=== PATIENT | female | born 1955 | race Caucasian/White ===

== ENCOUNTER 2017-02-24 10:15 | Outpatient (CLI) | payer MEDICARE ==
[2017-02-24 11:24] LABS: #Basophils 0.1 thou/uL (0.0-0.2); #Eosinphils 0.4 thou/uL (0.0-0.7); #Lymphocytes 2.6 thou/uL (1.20-3.40); #Monocytes 0.7 thou/uL (0.11-0.59); #Neutrophils 4.2 thou/uL (1.40-6.50); %Basophils 1.6 % (0.0-1.0); %Eosinophils 4.8 % (0.0-10.0); %Lymphocytes 32.7 % (21.0-51.0); %Monocytes 8.2 % (0.0-10.0); %Neutrophils 52.6 % (42.0-75.0); Mean Corpuscular HGB CONC 34.8 g/dL (32.0-36.0); Mean Corpuscular Hemoglobin 30.7 pg (27.0-31.0); Mean Corpuscular Volume 88.3 fl (81.0-99.0); Mean Platelet Volume 7.1 fL (7.4-10.4); Platelet Count 232 thou/uL (130-400); RBC Distribution Width 13.1 % (11.5-14.5); Red Blood Cell (RBC) Count 4.87 mill/uL (4.20-5.40); White Blood Cell (WBC) Count 8.1 thou/uL (4.8-10.8)
[2017-02-24 11:32] LABS: ALT (SGPT) 57 U/L (8-55); AST (SGOT) 30 U/L (5-34); Albumin 4.5 g/dL (3.4-4.8); Alkaline Phosphatase 95 U/L (40-150); Anion Gap 16 mmol/L (10-20); BUN (Urea Nitrogen) 19 mg/dL (9.8-20.1); Bilirubin, Total 0.9 mg/dL (0.2-1.2); Calc. Creatinine Clearance 0 mL/min (70-130); Calcium 9.7 mg/dL (7.8-10.44); Carbon Dioxide 24 mmol/L (23-31); Cardiac Risk 4.9 (Less than 4.5); Chloride 105 mmol/L (98-107); Cholesterol 178 mg/dl (< 200 Desired); Estimated GFR-MDRD 62; Globulin 2.6 g/dL (2.4-3.5); Glucose 123 mg/dL (80-115); HDL Cholesterol 36 mg/dL (>60 Neg Risk); LDL Cholesterol, Calculated 106 mg/dL; Potassium 4.2 mmol/L (3.5-5.1); Protein, Total 7.1 g/dL (6.0-8.3); Sodium 141 mmol/L (136-145); Triglycerides 180 mg/dL (Less than 150)
[2017-02-24 18:05] LABS: Creatinine, Urine 127.42 mg/dL (47-110); Microalbumin/Creat Ratio 31.4 mg/g (Less than 30)
== END 2017-02-24 10:16 | disposition home or self-care (01) ==
LOC: HPCALD 10:15
PROVIDERS: ATTEND Family Medicine
DX: E11.9 Type 2 diabetes mellitus without complications (principal); I10 Essential (primary) hypertension
CPT/HCPCS: 36415; 80053; 80061; 82043; 84443; 85025

== ENCOUNTER 2017-04-07 09:10 | Outpatient (CLI) | payer MEDICARE ==
[2017-04-07 09:25] LABS: Hemoglobin 14.3 g/dL (12.0-16.0); Mean Corpuscular HGB CONC 34.9 g/dL (32.0-36.0); Mean Corpuscular Hemoglobin 30.7 pg (27.0-31.0); Mean Corpuscular Volume 87.8 fl (81.0-99.0); Mean Platelet Volume 7.2 fL (7.4-10.4); Platelet Count 206 thou/uL (130-400); RBC Distribution Width 12.5 % (11.5-14.5); Red Blood Cell (RBC) Count 4.65 mill/uL (4.20-5.40); White Blood Cell (WBC) Count 6.2 thou/uL (4.8-10.8)
[2017-04-07 09:43] LABS: ALT (SGPT) 54 U/L (8-55); AST (SGOT) 28 U/L (5-34); Albumin 4.2 g/dL (3.4-4.8); Alkaline Phosphatase 92 U/L (40-150); Anion Gap 12 mmol/L (10-20); BUN (Urea Nitrogen) 17 mg/dL (9.8-20.1); Bilirubin, Total 0.9 mg/dL (0.2-1.2); Calc. Creatinine Clearance 0 mL/min (70-130); Calcium 9.5 mg/dL (7.8-10.44); Carbon Dioxide 28 mmol/L (23-31); Chloride 105 mmol/L (98-107); Estimated GFR-MDRD 64; Globulin 2.7 g/dL (2.4-3.5); Glucose 136 mg/dL (80-115); Potassium 4.1 mmol/L (3.5-5.1); Protein, Total 6.9 g/dL (6.0-8.3); Sodium 141 mmol/L (136-145)
[2017-04-07 17:56] LABS: CRP (Inflammatory) Less than 0.50 mg/dL (= or < 0.5)
== END 2017-04-07 09:11 | disposition home or self-care (01) ==
LOC: BURLAB 09:10
PROVIDERS: ATTEND Internal Medicine Gastroenterology
DX: K51.20 Ulcerative (chronic) proctitis without complications (principal)
CPT/HCPCS: 36415; 80053; 85027; 86140

== ENCOUNTER 2017-04-15 10:01 | Outpatient (CLI) | payer MEDICARE ==
--- NOTE | 2017-04-15 21:13 | ULT ---
RIGHT UPPER QUADRANT ULTRASOUND 04/15/17 Ultrasonography of the right upper quadrant was performed for evaluation of abnormal liver function tests. The patient does not image extremely well by ultrasound, though useful inflammation was obtai ivan. The hepatic parenchyma is seen only moderately well, but the liver is unquestionably enlarged, measu ring 18.2 cm in oblique sagittal dimension. The parenchyma seems somewhat echogenic suggesting there may be fatty infiltration. There are no dilated intrahepatic ducts or obvious masses. Portal venous flow was measured and is traveling towards the liver as would be normal. The gallbladder contained no stones or wall thickening. Some images suggested the possibility of slu dge, however, the area is seen poorly enough that this could also be artifactual echoes. The pancrea s is only seen faintly, but the visible areas were unremarkable. The common bile duct was a normal 5 mm in caliber. The right kidney was 10.5 cm in length and appeared normal. IMPRESSION: 1. Hepatomegaly with possible fatty infiltration of the liver. 2. Equivocal sludge in the gallbladder versus artifactual echoes. No stones or wall thickening. POS: HOME
== END 2017-04-15 10:02 | disposition home or self-care (01) ==
LOC: BURULT 10:01
PROVIDERS: ATTEND Internal Medicine Gastroenterology
DX: K51.30 Ulcerative (chronic) rectosigmoiditis without complications (principal); R74.0 Nonspecific elevation of levels of transaminase and lactic acid dehydrogenase [LDH]; Z80.0 Family history of malignant neoplasm of digestive organs; R16.0 Hepatomegaly, not elsewhere classified; K82.8 Other specified diseases of gallbladder
CPT/HCPCS: 76705

== ENCOUNTER 2017-05-01 11:45 | Outpatient (CLI) | payer MEDICARE | END 2017-05-01 11:46 | disposition home or self-care (01) | LOC: BURLAB 11:45 | PROVIDERS: ATTEND Internal Medicine Gastroenterology | DX: Z01.812 Encounter for preprocedural laboratory examination (principal) | CPT/HCPCS: 36415; 82565 ==

== ENCOUNTER 2017-05-05 07:40 | Outpatient (CLI) | payer MEDICARE ==
--- NOTE | 2017-05-05 21:12 | CT ---
CT ABDOMEN WITH AND WITHOUT CONTRAST 05/05/17 Comparison is made with a prior CT dated 02/28/15. Scans were initially done without IV contrast. A portal venous phase scan was done after injection o f contrast followed by a slightly delayed image about three minutes later. Axial slices were acquire d, then coronal and sagittal reconstructions were done. The lung bases are clear. The liver is slightly generous in size but it is really no different than it was in 2015. It is slightly dense suggesting some degree of fatty infiltration. There were no sig ns of masses or areas of abnormal enhancement within the liver. The gallbladder does not have thick haynes or abnormal enhancement. No calculi were seen within it. The spleen is normal in size. The pineda creas was unremarkable in appearance. The kidneys showed no mass or hydronephrosis. The abdominal ao rta has some calcification in it but no aneurysm. The patient has a known right adrenal mass. On today's study, the size of the mass was measured at 2 .6 x 2.1 cm. This is virtually identical to the 2015 size of 2.7 x [address] numbers noncontras t were around 17 units. The portal venous phase gail to 55 units. A true 15 minute washout was not d one, though the CT density even three minutes after the portal venous phase image had already decre ased to 34 units. All of these findings make it more likely than not that this is a benign lesion, s uch as an adenoma, and the lack of growth overtime is also comforting. There is no sign of dilation of bowel or thickening of the colon or small bowel haynes in the areas v isible. The only section of question is whether there might be some marginal thickening of the haynes in the pyloric region of the distal stomach. As this is not fully distended, the finding is indefin ite. No free air or free fluid was seen. The bony structures showed no acute changes. Some degenerative changes were seen in the spine. The l owest scan shows some significant degenerative changes occurring at the top of the left SI joint. Th ere is certainly arthritic changes in the facet joints at multiple levels of the lumbar spine with s ome concentric bulging of some of the lower lumbar discs. IMPRESSION: 1. Mild prominence of hepatic size with no change since 2014. Probable mild fatty infiltration of the liver. No focal hepatic lesions. 2. 2.6 cm right adrenal mass. It has not grown in size since the 2015 scan. While a full adrena l washout study was not done, the findings listed above are typical of benign lesions. 3. Equivocal slight thickening of the wall of the pylorus, an equivocal finding given that it i s not well distended by the oral contrast given. POS: HOME
== END 2017-05-05 07:41 | disposition home or self-care (01) ==
LOC: BURCT 07:40
PROVIDERS: ATTEND Internal Medicine Gastroenterology
DX: R16.0 Hepatomegaly, not elsewhere classified (principal); E27.8 Other specified disorders of adrenal gland
CPT/HCPCS: 74170

== ENCOUNTER 2018-11-23 12:11 | Outpatient (CLI) | payer MEDICARE ==
--- NOTE | 2018-11-23 21:21 | RAD ---
THORACIC SPINE TWO VIEWS: 11/23/18 No obvious fracture or area of vertebral destruction was seen. Abnormalities of the upper thoracic ve rtebrae would not be seen as well on this plain film study and would need cross-sectional imaging. De generative changes are seen in the spine which are mild in most areas and more moderate in the lower thoracic spine. Epidural stimulator leads are noted in the lower thoracic region. IMPRESSION: Mild to moderate degenerative change. POS: HOME
--- NOTE | 2018-11-23 21:22 | RAD ---
RIGHT RIBS FOUR VIEWS: 11/23/18 No fracture or area of bony destruction was apparent. All ribs appeared intact. The adjacent right joel ng is clear. There are no effusions. Degenerative change is seen in the right AC joint. IMPRESSION: No significant finding. POS: HOME
== END 2018-11-23 12:12 | disposition home or self-care (01) ==
LOC: BURRAD 12:11
PROVIDERS: ATTEND Family Medicine
DX: M54.6 Pain in thoracic spine (principal)
CPT/HCPCS: 72070

== ENCOUNTER 2020-06-25 09:15 | Emergency (ER) | payer MEDICARE, OTHER ==
[2020-06-25 10:49] LABS: ALT (SGPT) 59 U/L (8-55); AST (SGOT) 36 U/L (5-34); Albumin 4.5 g/dL (3.4-4.8); Alkaline Phosphatase 64 U/L (40-110); Anion Gap 15 mmol/L (10-20); BUN (Urea Nitrogen) 26 mg/dL (9.8-20.1); Bilirubin, Total 0.9 mg/dL (0.2-1.2); Calc. Creatinine Clearance 0 mL/min (70-130); Calcium 9.8 mg/dL (7.8-10.44); Carbon Dioxide 25 mmol/L (23-31); Chloride 105 mmol/L (98-107); Estimated GFR-MDRD 50; Glucose 151 mg/dL (80-115); Potassium 3.9 mmol/L (3.5-5.1); Protein, Total 7.5 g/dL (6.0-8.3); Sodium 141 mmol/L (136-145)
[2020-06-25 11:02] LABS: Hemoglobin 10.1 g/dL (12.0-16.0); Mean Corpuscular HGB CONC 32.9 g/dL (32.0-36.0); Mean Corpuscular Hemoglobin 35.3 pg (27.0-31.0); Mean Platelet Volume 5.9 fL (7.4-10.4); Platelet Count 98 thou/uL (130-400); RBC Distribution Width 16.3 % (11.5-14.5); Red Blood Cell (RBC) Count 2.86 mill/uL (4.20-5.40); White Blood Cell (WBC) Count 12.2 thou/uL (4.8-10.8)
[2020-06-25 11:06] LABS: Band 8 % (5-11); Lymphocytes 28 % (21-51); MDiff Complete? YES; Neutrophil 42 % (42-75)
[2020-06-25 11:07] LABS: Anisocytosis SLIGHT = 6-15 cells (100X) (0-5/hpf); Basophilic Stippling SLIGHT = 1-2 cells (100X) (None Seen); Eosinophils 3 % (0-10); Hypochromia SLIGHT = 6-15 cells (100X) (0-5/hpf); Macrocytosis SLIGHT = 6-15 cells (100X) (0-5/hpf); Metamyelocyte 4 % (0-0); Microcytosis SLIGHT = 6-15 cells (100X) (0-5/hpf); Monocytes 10 % (0-10); Myelocyte 3 % (0-0); Nucleated RBC 18 % (0); Platelet Morphology Comment Appears Decreased; Polychromasia SLIGHT = 2-3 cells (100X) (0-2/hpf); Promyelocytes 1 % (0-0)
[2020-06-25 11:08] LABS: Manual Diff?? YES
[2020-06-25] MEDS ORDERED: Aspirin Chewable 81 MG TAB ONE (11:32)
[2020-06-25] MEDS ORDERED: Albuterol 200 PUFF (6.7GM INHALER) ONE (11:32)
[2020-06-25 12:58] LABS: Bilirubin Negative (Negative); Blood, Urine Negative (Negative); Clarity Clear (Clear); Glucose, Urine (Dipstick) Negative (Negative); Ketone, Urine Negative (Negative); Leukocyte Trace (Negative); Nitrite Negative (Negative); Protein, Urine (Dipstick) Negative (Neg-Trace); Specific Gravity, Urine 1.025 (1.005-1.030); pH, Urine 5.5 (5.0-9.0)
[2020-06-25 13:05] LABS: RBC/HPF 0-3 HPF (0-3)
[2020-06-25 13:06] LABS: Bacteria/HPF 2+ HPF (None Seen); Squamous Epithelial 0-3 HPF (0-3)
--- NOTE | 2020-06-25 13:32 | RAD ---
PORTABLE CHEST: Date: 06/25/2020 An AP portable film at 1047 hours is compared with the 11/23/2018 study. The heart is normal in size. There is no vascular congestion, edema, or pleural effusion. The mediast inum is unremarkable. IMPRESSION: No acute thoracic finding. POS: HOME
== END 2020-06-25 13:50 | disposition short-term general hospital (02) ==
LOC: BURERS 09:15
DX: R07.9 Chest pain, unspecified (principal); D64.9 Anemia, unspecified; D69.6 Thrombocytopenia, unspecified; I10 Essential (primary) hypertension; F41.9 Anxiety disorder, unspecified; F32.9 Major depressive disorder, single episode, unspecified; Z87.891 Personal history of nicotine dependence
CPT/HCPCS: 71045; 80053; 81003; 81015; 83880; 84484; 85025; 93005

== ENCOUNTER 2020-11-08 17:08 | Emergency (ER) | payer MEDICARE, OTHER ==
[2020-11-08] MEDS ORDERED: Acetaminophen 500 MG TAB ONE (17:32)
== END 2020-11-08 19:05 | disposition home or self-care (01) ==
LOC: BURERS 17:08
DX: M79.662 Pain in left lower leg (principal); R79.1 Abnormal coagulation profile; I10 Essential (primary) hypertension; G47.30 Sleep apnea, unspecified; E11.9 Type 2 diabetes mellitus without complications; Z87.891 Personal history of nicotine dependence; Z79.84 Long term (current) use of oral hypoglycemic drugs; Z79.899 Other long term (current) drug therapy
CPT/HCPCS: 36415; 85379; 99283

== ENCOUNTER 2022-02-05 15:44 | Emergency (ER) | payer MEDICARE, OTHER ==
[2022-02-05 16:07] LABS: #Basophils 0.1 thou/uL (0.0-0.2); #Eosinphils 0.4 thou/uL (0.0-0.7); #Lymphocytes 1.1 thou/uL (1.20-3.40); #Monocytes 0.3 thou/uL (0.11-0.59); #Neutrophils 3.8 thou/uL (1.40-6.50); %Basophils 0.9 % (0.0-1.0); %Eosinophils 6.9 % (0.0-10.0); %Lymphocytes 18.7 % (21.0-51.0); %Neutrophils 67.4 % (42.0-75.0); Hemoglobin 11.2 g/dL (12.0-16.0); Mean Corpuscular HGB CONC 33.1 g/dL (32.0-36.0); Mean Corpuscular Hemoglobin 30.7 pg (27.0-31.0); Mean Corpuscular Volume 92.7 fL (78.0-98.0); Mean Platelet Volume 7.8 fL (7.4-10.4); Platelet Count 158 thou/uL (130-400); RBC Distribution Width 18.3 % (11.5-14.5); Red Blood Cell (RBC) Count 3.65 mill/uL (4.20-5.40); White Blood Cell (WBC) Count 5.7 thou/uL (4.8-10.8)
[2022-02-05 16:23] LABS: ALT (SGPT) 49 U/L (8-55); AST (SGOT) 30 U/L (5-34); Albumin 4.2 g/dL (3.4-4.8); Alkaline Phosphatase 115 U/L (40-110); Anion Gap 17 mmol/L (10-20); BUN (Urea Nitrogen) 28 mg/dL (9.8-20.1); Bilirubin, Total 0.7 mg/dL (0.2-1.2); Calc. Creatinine Clearance 0 mL/min (70-130); Calcium 9.5 mg/dL (7.8-10.44); Carbon Dioxide 24 mmol/L (23-31); Chloride 106 mmol/L (98-107); Globulin 2.5 g/dL (2.4-3.5); Glucose 121 mg/dL (80-115); Potassium 4.3 mmol/L (3.5-5.1); Protein, Total 6.7 g/dL (5.8-8.1); Sodium 143 mmol/L (136-145)
[2022-02-05 17:38] LABS: Bilirubin Negative (Negative); Blood, Urine Trace (Negative); Clarity Clear (Clear); Glucose, Urine (Dipstick) Negative (Negative); Ketone, Urine Negative (Negative); Leukocyte Negative (Negative); Nitrite Negative (Negative); Protein, Urine (Dipstick) 100 mg/dL (Neg-Trace); Urobilinogen 0.2 mg/dL (Less than 2); pH, Urine 5.5 (5.0-9.0)
[2022-02-05 17:45] LABS: Bacteria/HPF None Seen HPF (None Seen); RBC/HPF 0-3 HPF (0-3); Squamous Epithelial 0-3 HPF (0-3); WBC/HPF 0-3 HPF (0-3)
== END 2022-02-05 18:28 | disposition home or self-care (01) ==
LOC: BURERS 15:44
DX: R41.0 Disorientation, unspecified (principal); N28.9 Disorder of kidney and ureter, unspecified; G47.30 Sleep apnea, unspecified; I10 Essential (primary) hypertension; E11.9 Type 2 diabetes mellitus without complications; E78.5 Hyperlipidemia, unspecified; Z87.891 Personal history of nicotine dependence
CPT/HCPCS: 36415; 70450; 80053; 81003; 81015; 84484; 85025; 93005; 94760

== ENCOUNTER 2022-10-08 09:58 | Outpatient (CLI) | payer MEDICARE, OTHER | END 2022-10-08 09:59 | disposition home or self-care (01) | LOC: BURRAD 09:58 | PROVIDERS: ATTEND Family Medicine | DX: R91.8 Other nonspecific abnormal finding of lung field (principal); R05.9 Cough, unspecified | CPT/HCPCS: 71046 ==

== ENCOUNTER 2023-05-08 10:41 | Outpatient (CLI) | payer MEDICARE, OTHER | END 2023-05-08 10:42 | disposition home or self-care (01) | LOC: BURRAD 10:41 | PROVIDERS: ATTEND Family Medicine | DX: R05.2 Subacute cough (principal) | CPT/HCPCS: 71046 ==

== ENCOUNTER 2024-04-28 11:36 | Outpatient (CLI) | payer MEDICARE, OTHER | END 2024-04-28 11:37 | disposition home or self-care (01) | LOC: BURCT 11:36 | PROVIDERS: ATTEND Physician Assistant | DX: J18.0 Bronchopneumonia, unspecified organism (principal); D35.01 Benign neoplasm of right adrenal gland; I70.90 Unspecified atherosclerosis | CPT/HCPCS: 71250 ==

== ENCOUNTER 2024-08-16 13:50 | Outpatient (CLI) | payer MEDICARE, OTHER | END 2024-08-16 13:51 | disposition home or self-care (01) | LOC: BURCT 13:50 | PROVIDERS: ATTEND Internal Medicine | DX: J15.8 Pneumonia due to other specified bacteria (principal); J32.9 Chronic sinusitis, unspecified; J34.9 Unspecified disorder of nose and nasal sinuses; D35.01 Benign neoplasm of right adrenal gland; R91.8 Other nonspecific abnormal finding of lung field | CPT/HCPCS: 71250 ==

== ENCOUNTER 2024-08-19 14:50 | Emergency (ER) | payer MEDICARE, OTHER | END 2024-08-19 16:40 | disposition home or self-care (01) | LOC: BURERS 14:50 | DX: S82.434A Nondisplaced oblique fracture of shaft of right fibula, initial encounter for closed fracture (principal); S90.31XA Contusion of right foot, initial encounter; I10 Essential (primary) hypertension; E11.9 Type 2 diabetes mellitus without complications; W20.8XXA Other cause of strike by thrown, projected or falling object, initial encounter; Y93.89 Activity, other specified; Y92.22 Religious institution as the place of occurrence of the external cause; Z87.891 Personal history of nicotine dependence; Z79.01 Long term (current) use of anticoagulants | CPT/HCPCS: 99283 ==

== ENCOUNTER 2025-04-11 10:18 | Outpatient (CLI) | payer OTHER | END 2025-04-11 10:19 | disposition home or self-care (01) | LOC: BURCT 10:18 | PROVIDERS: ATTEND Anesthesiology | DX: M54.17 Radiculopathy, lumbosacral region (principal); M47.814 Spondylosis without myelopathy or radiculopathy, thoracic region; M48.061 Spinal stenosis, lumbar region without neurogenic claudication; D35.01 Benign neoplasm of right adrenal gland | CPT/HCPCS: 72128; 72131 ==

== ENCOUNTER 2025-08-30 11:28 | Emergency (ER) | payer MEDICARE, OTHER | END 2025-08-30 12:52 | disposition home or self-care (01) | LOC: BURERS 11:28 | DX: B34.9 Viral infection, unspecified (principal); I10 Essential (primary) hypertension; E11.9 Type 2 diabetes mellitus without complications | CPT/HCPCS: 71046; 87428 ==